=== PATIENT | female | born 1945 | race Caucasian/White ===

== ENCOUNTER 2017-12-21 16:48 | Inpatient (IN) | payer MEDICARE, SELFPAY ==
[2017-12-21 16:49] VITALS: BP 146/69; PULSE 69; RESP 16; TEMP 36; O2SAT 94; BMI 41.5
--- NOTE | 2017-12-21 17:34 | CT_ITS ---
STUDY: CT ABDOMEN AND PELVIS WITH CONTRAST REASON FOR EXAM: Female, 72 years old. Abdominal burning tightness. RADIATION DOSAGE (If Supplied By Facility): CTDIvol = ( 18.71 ) mGy, DLP = ( 1142.55 ) mGycm TECHNIQUE: Transaxial images were obtained from the dome of the diaphragm to the symphysis pubis without oral contrast. 100 ml of Isovue 300 contrast was administered. Sagittal and coronal images were reconstructed. Individualized dose optimization techniques were used for this CT. COMPARISON: None. FINDINGS: The liver, spleen, pancreas, adrenal glands, and kidneys are unremarkable. The aorta is normal in caliber, with mild atherosclerotic calcification. The gallbladder is distended with multiple stones. There is wall thickening and trace pericholecystic inflammatory stranding. No evidence of biliary duct dilation. Duodenal diverticulum is noted. There is no bowel obstruction or inflammatory change. Infraumbilical midline abdominal wall hernia contains a loop of small bowel. There is no free fluid, free air, or organized collection. Normal urinary bladder. Normal abdominal wall. Normal osseous structures. CT/Abdomen/Pelvis WITH Contrast IMPRESSION: 1. Cholelithiasis and suspected acute cholecystitis. 2. Midline abdominal wall hernia containing bowel. No obstruction. Electronically Signed: Andra Arnold MD at 19:50 EDT Tel , Service support ,
--- NOTE | 2017-12-21 17:35 | EKG12_ITS ---
Test Reason : Blood Pressure : / mmHG Vent. Rate : 070 BPM Atrial Rate : 070 BPM P-R Int : 140 ms QRS Dur : 084 ms QT Int : 400 ms P-R-T Axes : 062 050 023 degrees QTc Int : 432 ms Normal sinus rhythm Normal ECG Confirmed by JENNIFER HART, MIKAL ([id number]), web content editor NUVIA MARX ([id number] on 12/24/2017 2:29:56 PM Referred By: Audi Kilpatrick Confirmed By:MIKAL RODRIGUEZ MD
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
[2017-12-21 18:19] LABS: Absolute Lymphocyte Count 2.04 X10^3/ul (0.83-4.51); Absolute Neutrophil Count 10.3 X10^3/uL (2.0-7.7); Basophil# 0.03 X10^3/uL; Basophil% 0.2 % (0-1); Eosinophil# 0.07 X10^3/uL; Eosinophils% 0.5 % (0-5); Hematocrit 42.6 % (37-47); Hemoglobin 13.9 g/dl (12.0-15.0); Lymphocyte # 2.04 X10^3/ul (4.0); Lymphocyte % 14.4 % (19-41); Mean Corp Hgb Conc 32.6 g/gl (32-36); Mean Corpuscular Hgb 29.7 pg (27.0-32.0); Monocyte# 1.77 X10^3/uL; Monocyte% 12.5 % (0-10); Neutrophil # 10.25 X10^3/uL (2.7-7.7); Neutrophil % 72.1 % (47-70); POSITIVE DIFFERENTIAL YES; Platelet Count 301 K/mm3 (150-450); RBC Distribution Width SD 42.9 fl (35.1-43.9); Red Blood Count 4.68 M/mm3 (4.2-5.4); White Blood Count 14.2 K/mm3 (4.4-11.0)
[2017-12-21 18:20] LABS: Differential Indicated SCAN CRITERIA MET; POSITIVE COUNT NO; POSITIVE MORPHOLOGY NO
[2017-12-21 18:20] LABS: Mucous, Urine 0 SEEN /hpf (<or=2+); Red Blood Cells-Urine 0 SEEN /hpf (0-5)
[2017-12-21 18:21] LABS: Color, Urine Yellow (Yellow); Glucose, Dipstick Normal (Normal); Ketone-Dipstick Negative (Negative); Leukocyte Esterase-Dipstick 25 /ul (Negative); Nitrite-Dipstick Negative (Negative); Occult Blood-Urine Negative /ul (Negative); Protein-Dipstick Negative (Negative); Urine Bilirubin Dipstick Negative (Negative); Urine Clarity Clear (Clear); Urine Urobilinogen 1 mg/dl (Normal)
[2017-12-21] MEDS: 0.9% Normal Saline 1,000 ML 500 ML IV (18:22)
[2017-12-21] MEDS: Ondansetron 4 MG/2 ML Vial IV (18:22)
[2017-12-21] MEDS: Morphine 4 MG/ML Syringe IV (18:22)
[2017-12-21 18:33] LABS: Squamous Epithelial Cells - UA 5-10 SEEN /hpf (5-10); White Blood Cells 0-5 SEEN /hpf (0-5)
[2017-12-21 18:34] LABS: Bacteria 1+ /hpf (None Seen); Hyaline Cast 0-5 SEEN /lpf (0-5)
[2017-12-21 18:36] LABS: ALB/GLOB Ratio 0.8 RATIO (0.9-2.4); AST(SGOT) 19 U/L (15-37); Alanine Aminotransfer ALT/SGPT 27 U/L (13-56); Albumin, Serum 3.3 g/dL (3.2-5.0); Alkaline Phosphatase 113 U/L (45-117); Anion Gap 9 (5-15); BUN 12 mg/dL (7-18); Calcium,Total 8.9 mg/dL (8.5-10.1); Chloride 99 mmol/L (98-107); Creatinine, Serum 0.86 mg/dL (0.55-1.02); Differential Comment SCANNED; EST Glomerular Filtration Rate 69 mL/min (>60); Est Glom Filt Rate - Afr Amer 84 mL/min (>60); Estimated Creatinine Clearance 51.81 ml/min; Globulin 4.1 g/dL (2.2-4.2); Glucose 109 mg/dL (74-106); Lipase 78 U/L (73-393); Potassium 4.2 mmol/L (3.5-5.1); Protein, Total 7.4 g/dL (6.4-8.2); Sodium Level 137 mmol/L (136-145)
[2017-12-21 18:43] LABS: Lactic Acid 0.8 mmol/L (0.4-2.0)
[2017-12-21 19:42] VITALS: BP 137/74; PULSE 66; RESP 16; O2SAT 98
[2017-12-21 20:47] LABS: AST(SGOT) 23 U/L (15-37); Alanine Aminotransfer ALT/SGPT 26 U/L (13-56); Albumin, Serum 3.3 g/dL (3.2-5.0); Alkaline Phosphatase 118 U/L (45-117); Bilirubin, Direct 0.51 mg/dL (0.00-0.30); Globulin 4.1 g/dL (2.2-4.2); Protein, Total 7.4 g/dL (6.4-8.2)
[2017-12-21 21:38] VITALS: PULSE 62; RESP 12; O2SAT 95
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
[2017-12-21 23:30] LABS: International Normalized Ratio 1.1; Prothrombin Time (Protime)PT. 13.8 SECONDS (11.7-14.9)
[2017-12-21 23:54] VITALS: BMI 41.8
[2017-12-22] VITALS (12 sets, daily range): BP systolic 106–128; BP diastolic 53–87; PULSE 60–70; RESP 16–18; TEMP 36.5–37; O2SAT 93–97; BMI 41.8
[2017-12-22 05:29] LABS: Absolute Lymphocyte Count 2.09 X10^3/ul (0.83-4.51); Absolute Neutrophil Count 7.8 X10^3/uL (2.0-7.7); Basophil# 0.03 X10^3/uL; Basophil% 0.3 % (0-1); Eosinophil# 0.21 X10^3/uL; Eosinophils% 1.8 % (0-5); Hematocrit 41.8 % (37-47); Hemoglobin 13.8 g/dl (12.0-15.0); Lymphocyte # 2.09 X10^3/ul (4.0); Lymphocyte % 17.7 % (19-41); Mean Corpuscular Volume 90.9 fL (81-99); Mean Platelet Vol. 9.9 fl (6.2-12.0); Monocyte# 1.62 X10^3/uL; Monocyte% 13.7 % (0-10); Neutrophil # 7.83 X10^3/uL (2.7-7.7); Neutrophil % 66.3 % (47-70); Platelet Count 247 K/mm3 (150-450); White Blood Count 11.8 K/mm3 (4.4-11.0)
[2017-12-22 05:30] LABS: Differential Indicated SCAN CRITERIA MET; POSITIVE COUNT NO; POSITIVE DIFFERENTIAL YES; POSITIVE MORPHOLOGY NO
[2017-12-22 05:34] LABS: Partial Thromboplast Time 27.8 Seconds (24.1-36.2)
[2017-12-22] MEDS: Piperacil/Tazobactam 3.375 GM/50 ML ML IV ×2 (05:40→13:23)
[2017-12-22] MEDS: 0.9% NaCl Peripheral Flush Adult/Peds IV ×2 (05:41→09:51)
[2017-12-22] MEDS: 0.9% NaCl IVPB Med Flush (250 mL) 15 ML IV (05:46)
--- NOTE | 2017-12-22 05:55 | EKG12_ITS ---
Test Reason : AM EKG Blood Pressure : / mmHG Vent. Rate : 067 BPM Atrial Rate : 067 BPM P-R Int : 154 ms QRS Dur : 086 ms QT Int : 400 ms P-R-T Axes : 042 058 026 degrees QTc Int : 422 ms Normal sinus rhythm Normal ECG When compared with ECG of 21-DEC-2017 17:45, MANUAL COMPARISON REQUIRED, DATA IS UNCONFIRMED Confirmed by JANET HART, BISMARK ([id number]), social media editor NUVIA MARX ([id number]) on 12/24/2017 3:30:49 PM Referred By: Audi Kilpatrick Confirmed By:BISMARK GONZALES MD
[2017-12-22 06:06] LABS: Anion Gap 9 (5-15); BUN 10 mg/dL (7-18); BUN/Creat Ratio 12.9 RATIO (10-20); Calcium,Total 8.5 mg/dL (8.5-10.1); Chloride 102 mmol/L (98-107); Creatinine, Serum 0.77 mg/dL (0.55-1.02); EST Glomerular Filtration Rate 78 mL/min (>60); Est Glom Filt Rate - Afr Amer 95 mL/min (>60); Estimated Creatinine Clearance 44.56 ml/min; Glucose 95 mg/dL (74-106); Potassium 3.9 mmol/L (3.5-5.1); Sodium Level 137 mmol/L (136-145); Thyroid Stim Hormone (TSH) 1.46 uIU/mL (0.358-3.74)
[2017-12-22 07:50] LABS: AST(SGOT) 28 U/L (15-37); Alanine Aminotransfer ALT/SGPT 29 U/L (13-56); Albumin, Serum 2.8 g/dL (3.2-5.0); Alkaline Phosphatase 105 U/L (45-117); Bilirubin, Direct 0.33 mg/dL (0.00-0.30); Protein, Total 6.8 g/dL (6.4-8.2)
--- NOTE | 2017-12-22 08:47 | PCM.PN.SRG ---
Patient Problems: Active and Suspected Problems Cholelithiasis and acute cholecystitis with obstruction (Acute) Subjective: Patient is still having abdominal pain. - Physical Exam General: Alert, Oriented x3, Cooperative Lungs: Normal air movement Cardiovascular: Regular rate, Regular Rhythm Abdomen: Soft, Non-Distended, Obese, Tender, Hernia Vital Signs Temp Pulse Resp BP Pulse Ox 98.0 F 70 16 122/79 H 96 12/22/17 06:30 12/22/17 06:30 12/22/17 06:30 12/22/17 06:30 12/22/17 06:30 Oxygen Delivery Method Room Air Weight: 243 lb 9.773 oz Body Mass Index (BMI) 41.8 Intake and Output for Last 24 Hours 12/20/17 12/21/17 12/22/17 23:59 23:59 23:59 Intake Total 202 / 202 Output Total 300 / 300 Balance -98 / -98 Laboratory Tests Past 24 Hrs 12/22/17 12/22/17 12/22/17 05:12 05:12 05:12 WBC 11.8 H RBC 4.60 Hgb 13.8 Hct 41.8 MCV 90.9 MCH 30.0 MCHC 33.0 RDW 13.0 RDW Differential 43.0 Plt Count 247 MPV 9.9 Immature Gran % (Auto) 0.200 Neut % (Auto) 66.3 Lymph % (Auto) 17.7 L Jay % (Auto) 13.7 H Eos % (Auto) 1.8 Baso % (Auto) 0.3 Absolute Neuts (auto) 7.8 H Absolute Lymphs (auto) 2.09 Total Counted Not Reportable APTT 27.8 Sodium 137 Potassium 3.9 Chloride 102 Carbon Dioxide 26.0 Anion Gap 9 BUN 10 Creatinine 0.77 Estim Creat Clear Calc 44.56 Est GFR (MDRD) Af Amer 95 Est GFR (MDRD) Non-Af 78 BUN/Creatinine Ratio 12.9 Glucose 95 Calcium 8.5 Total Bilirubin Direct Bilirubin AST ALT Alkaline Phosphatase Total Protein Albumin Globulin TSH 1.46 12/22/17 05:12 WBC RBC Hgb Hct MCV MCH MCHC RDW RDW Differential Plt Count MPV Immature Gran % (Auto) Neut % (Auto) Lymph % (Auto) Jay % (Auto) Eos % (Auto) Baso % (Auto) Absolute Neuts (auto) Absolute Lymphs (auto) Total Counted APTT Sodium Potassium Chloride Carbon Dioxide Anion Gap BUN Creatinine Estim Creat Clear Calc Est GFR (MDRD) Af Amer Est GFR (MDRD) Non-Af BUN/Creatinine Ratio Glucose Calcium Total Bilirubin 2.20 H Direct Bilirubin 0.33 H AST 28 ALT 29 Alkaline Phosphatase 105 Total Protein 6.8 Albumin 2.8 L Globulin 4.0 TSH Medical Necessity - Tobacco Use Smoking Status: Never smoker Assessment/Plan All Active Problems Cholelithiasis and acute cholecystitis with obstruction (Acute) Syncope and collapse (Resolved) Chest pain (Resolved) 72-year-old female with obstructive jaundice and cholecystitis 1. The patient has elevated LFTs which have not improved since yesterday. The patient has acute cholecystitis on her CT scan. There is concern for choledocholithiasis with obstruction. Dr. Araya would like me to perform an ERCP to clear the obstruction before laparoscopic cholecystectomy tomorrow. I also plan to place a stent at the time of ERCP as the cholecystectomy will likely be very difficult based on the patient's history and comorbidities as well as ventral hernia. This will allow for drainage if there is any bile leak or difficulty with surgery. 2. I discussed ERCP with the patient. I discussed the risks including but not limited to bleeding, infection, perforation of the bile duct or bowels, pancreatitis. The patient understands the risks and is willing to proceed with surgery. I also explained the possibility that the patient may remain intubated due to her emphysema and CHF. Alvaro Rose MD Pager: [facility] [address] [place] [address], [address] [place] [address] Office:
--- NOTE | 2017-12-22 08:51 | PN.SURG_ITS ---
Patient Problems: Active and Suspected Problems Cholelithiasis and acute cholecystitis with obstruction (Acute) Subjective: Patient is still having abdominal pain. - Physical Exam General: Alert, Oriented x3, Cooperative Lungs: Normal air movement Cardiovascular: Regular rate, Regular Rhythm Abdomen: Soft, Non-Distended, Obese, Tender, Hernia Vital Signs Temp Pulse Resp BP Pulse Ox 98.0 F 70 16 122/79 H 96 12/22/17 06:30 12/22/17 06:30 12/22/17 06:30 12/22/17 06:30 12/22/17 06:30 Oxygen Delivery Method Room Air Weight: 243 lb 9.773 oz Body Mass Index (BMI) 41.8 Intake and Output for Last 24 Hours 12/20/17 12/21/17 12/22/17 23:59 23:59 23:59 Intake Total 202 / 202 Output Total 300 / 300 Balance -98 / -98 Laboratory Tests Past 24 Hrs 12/22/17 12/22/17 12/22/17 05:12 05:12 05:12 WBC 11.8 H RBC 4.60 Hgb 13.8 Hct 41.8 MCV 90.9 MCH 30.0 MCHC 33.0 RDW 13.0 RDW Differential 43.0 Plt Count 247 MPV 9.9 Immature Gran % (Auto) 0.200 Neut % (Auto) 66.3 Lymph % (Auto) 17.7 L [place] % (Auto) 13.7 H Eos % (Auto) 1.8 Baso % (Auto) 0.3 Absolute Neuts (auto) 7.8 H Absolute Lymphs (auto) 2.09 Total Counted Not Reportable APTT 27.8 Sodium 137 Potassium 3.9 Chloride 102 Carbon Dioxide 26.0 Anion Gap 9 BUN 10 Creatinine 0.77 Estim Creat Clear Calc 44.56 Est GFR (MDRD) Af Amer 95 Est GFR (MDRD) Non-Af 78 BUN/Creatinine Ratio 12.9 Glucose 95 Calcium 8.5 Total Bilirubin Direct Bilirubin AST ALT Alkaline Phosphatase Total Protein Albumin Globulin TSH 1.46 12/22/17 05:12 WBC RBC Hgb Hct MCV MCH MCHC RDW RDW Differential Plt Count MPV Immature Gran % (Auto) Neut % (Auto) Lymph % (Auto) [place] % (Auto) Eos % (Auto) Baso % (Auto) Absolute Neuts (auto) Absolute Lymphs (auto) Total Counted APTT Sodium Potassium Chloride Carbon Dioxide Anion Gap BUN Creatinine Estim Creat Clear Calc Est GFR (MDRD) Af Amer Est GFR (MDRD) Non-Af BUN/Creatinine Ratio Glucose Calcium Total Bilirubin 2.20 H Direct Bilirubin 0.33 H AST 28 ALT 29 Alkaline Phosphatase 105 Total Protein 6.8 Albumin 2.8 L Globulin 4.0 TSH Medical Necessity - Tobacco Use Smoking Status: Never smoker Assessment/Plan All Active Problems Cholelithiasis and acute cholecystitis with obstruction (Acute) Syncope and collapse (Resolved) Chest pain (Resolved) 72-year-old female with obstructive jaundice and cholecystitis 1. The patient has elevated LFTs which have not improved since yesterday. The patient has acute cholecystitis on her CT scan. There is concern for choledocholithiasis with obstruction. Dr. Araya would like me to perform an ERCP to clear the obstruction before laparoscopic cholecystectomy tomorrow. I also plan to place a stent at the time of ERCP as the cholecystectomy will likely be very difficult based on the patient's history and comorbidities as well as ventral hernia. This will allow for drainage if there is any bile leak or difficulty with surgery. 2. I discussed ERCP with the patient. I discussed the risks including but not limited to bleeding, infection, perforation of the bile duct or bowels, pancreatitis. The patient understands the risks and is willing to proceed with surgery. I also explained the possibility that the patient may remain intubated due to her emphysema and CHF. Alvaro Rose MD Pager: [facility] [address] [place] [address], [address] [place] [address] Office:
--- NOTE | 2017-12-22 09:49 | NURSING ---
report called to Mariana GODDARD in [facility].
--- NOTE | 2017-12-22 11:41 | PCM.OPRPT ---
Problem List (1) Cholelithiasis and acute cholecystitis with obstruction Status: Acute Report of Operation Date of Procedure: 12/22/17 Pre-Operative Diagnosis: Elevated liver enzymes and cholecystitis Post-Operative Diagnosis: Periampullary diverticulum of the duodenum Surgery/Procedure Performed:: EGD with attempted ERCP Description of Surgical Findings:: The patient has 2 large periampullary diverticula. The ampulla was distorted and pulled into 1 of the diverticula and I was unable to cannulate the ampulla due to the angle. There was good bile flow at the beginning of the case and there was a lot of bile in the duodenum and stomach. I did see bile flowing from the ampulla. Description of Procedure: After describing the risks of the procedure as well as the procedure in detail informed consent was obtained. Patient was brought to the operating room and general anesthesia was induced. The patient was then placed in a semi-prone position. Next, the side-viewing endoscope was placed into the mouth and down into the stomach and advanced into the duodenum. The ampulla was located. The ampulla was located inside the diverticulum. The angle was such that it was facing away from the camera. I was unable to pull it back in order to have a straight view of the ampulla or head on access for cannulation. There was good bile flowing from the ampulla ruling out a total obstruction. The ampulla mucosa appeared normal but it was fully included in the diverticulum. At this point I decided to abort the procedure as I was unable to cannulate the duct due to the angulation of the ampulla. The side-viewing scope was then withdrawn back into the stomach and the stomach was suctioned. Next, the scope was removed. The patient was taken to PACU in stable condition. The patient tolerated the procedure well. - Admit VTE Documentation VTE Mechan Device Prophylaxis: SCD's
--- NOTE | 2017-12-22 15:44 | PCM.PN.SRG ---
Patient Problems: Active and Suspected Problems Cholelithiasis and acute cholecystitis with obstruction (Acute) Subjective: Patient had an unsuccessful ERCP. Total bili remains elevated as does alkaline phosphatase. Objective: Abdomen is soft tender in the right upper quadrant - Physical Exam Vital Signs Temp Pulse Resp BP Pulse Ox 98.6 F 63 18 110/69 95 12/22/17 15:33 12/22/17 15:33 12/22/17 15:33 12/22/17 15:33 12/22/17 15:33 Oxygen Flow Rate (L/min) 2 Oxygen Delivery Method Room Air Weight: 243 lb 9.773 oz Body Mass Index (BMI) 41.8 Intake and Output for Last 24 Hours 12/20/17 12/21/17 12/22/17 23:59 23:59 23:59 Intake Total 902 / 902 Output Total 300 / 300 Balance 602 / 602 Laboratory Tests Past 24 Hrs 12/22/17 12/22/17 12/22/17 05:12 05:12 05:12 WBC 11.8 H RBC 4.60 Hgb 13.8 Hct 41.8 MCV 90.9 MCH 30.0 MCHC 33.0 RDW 13.0 RDW Differential 43.0 Plt Count 247 MPV 9.9 Immature Gran % (Auto) 0.200 Neut % (Auto) 66.3 Lymph % (Auto) 17.7 L Sharkey % (Auto) 13.7 H Eos % (Auto) 1.8 Baso % (Auto) 0.3 Absolute Neuts (auto) 7.8 H Absolute Lymphs (auto) 2.09 Total Counted Not Reportable APTT 27.8 Sodium 137 Potassium 3.9 Chloride 102 Carbon Dioxide 26.0 Anion Gap 9 BUN 10 Creatinine 0.77 Estim Creat Clear Calc 44.56 Est GFR (MDRD) Af Amer 95 Est GFR (MDRD) Non-Af 78 BUN/Creatinine Ratio 12.9 Glucose 95 Calcium 8.5 Total Bilirubin Direct Bilirubin AST ALT Alkaline Phosphatase Total Protein Albumin Globulin TSH 1.46 12/22/17 05:12 WBC RBC Hgb Hct MCV MCH MCHC RDW RDW Differential Plt Count MPV Immature Gran % (Auto) Neut % (Auto) Lymph % (Auto) Sharkey % (Auto) Eos % (Auto) Baso % (Auto) Absolute Neuts (auto) Absolute Lymphs (auto) Total Counted APTT Sodium Potassium Chloride Carbon Dioxide Anion Gap BUN Creatinine Estim Creat Clear Calc Est GFR (MDRD) Af Amer Est GFR (MDRD) Non-Af BUN/Creatinine Ratio Glucose Calcium Total Bilirubin 2.20 H Direct Bilirubin 0.33 H AST 28 ALT 29 Alkaline Phosphatase 105 Total Protein 6.8 Albumin 2.8 L Globulin 4.0 TSH Medical Necessity - Tobacco Use Smoking Status: Never smoker Assessment/Plan All Active Problems Cholelithiasis and acute cholecystitis with obstruction (Acute) Syncope and collapse (Resolved) Chest pain (Resolved) Patient is going to have to probably have a laparoscopic or an open cholecystectomy with the probability and possibility of needing to have a common bile duct exploration. Given the fact that she has a large chevron incision it is unlikely that this is going to be done laparoscopically. Also given the fact that I have never done a common duct exploration I think it is best that this patient be transferred to a tertiary referral center.
--- NOTE | 2017-12-22 15:54 | CHAPLAIN ---
Type of Pastoral Visit _x__ Initial Visit ___ Follow-up Visit ___ On-call Visit ___ General Patient Visit ___ Spiritual Assessment ___ Family Conference ___ Bereavement ___ Rapid Response ___ Code Blue ___ Other (describe below) Pastoral Care Referral From _x__ Patient ___ Family ___ Nurse ___ Physician ___ Brand Analyst ___ Peanut Grader ___ Other (describe below) Sacrament/Intervention _x__ Active listening ___ Anointing ___ Buddhist ___ Bereavement ___ Communion _x__ Kae exploration ___ _x__ Life review _x__ Prayer ___ Reconciliation ___ Sacrament of Sick _x__ Supportive presence ___ Wedding ___ Other (describe below) Pastoral Comments
[2017-12-22] MEDS: BENZOCAINE/MENTHOL 1 LOZENGE MUCOUS MEM (16:50)
[2017-12-22] MEDS: Morphine 2 MG/ML Syringe IV (17:01)
--- NOTE | 2017-12-22 18:00 | NURSING ---
talked w/ tran general transfer line aware no bed at this time and hopeful will have a bed after supper.
--- NOTE | 2017-12-22 18:03 | DCINST_ITS ---
- Discharge Diagnoses Current Active Problems: Current Active and Chronic Problems Cholelithiasis and acute cholecystitis with obstruction (Acute) Emphysema of lung (Chronic) You will use the following diet at home:: Clear liquid Allergies/Adverse Reactions: Allergies No Known Allergies Allergy (Verified 09/06/16 10:02) Medications to take at Discharge Sertraline HCl [Zoloft] 50 mg PO DAILY 08/20/13 Levothyroxine [Synthroid] 100 mcg PO DAILY@0600 #30 tablet 07/27/15 0.9% Saline Lock 5 - 30 ml IV UD PRN syringe 12/22/17 Ondansetron [Zofran] 4 mg IV Q6H PRN PRN vial 12/22/17 Piperacil/Tazobactam [Zosyn] 3.375 gm IV Q8 ml 12/22/17 Primary Care Physician: Samm Morrow MD [Primary Care Provider] - Test Results: Test results from this visit will be discussed in further detail at your follow- up appointment, if applicable. Proposed Discharge Date: 12/22/17
--- NOTE | 2017-12-22 18:03 | PCM.DC.SUM ---
Discharge Date and Diagnosis - Problem List Patient Problems: Active and Suspected Problems Cholelithiasis and acute cholecystitis with obstruction (Acute) Date of Admission: 12/20/17 Date of Discharge: 12/22/17 - Primary Discharge Diagnosis Active and Suspected Problems Cholelithiasis and acute cholecystitis with obstruction (Acute) - Secondary Discharge Diagnosis Chronic Problems Emphysema of lung (Chronic) Pulmonary hypertension (Chronic) Simple phobia (Chronic) Obesity (Chronic) Hypothyroidism (Chronic) Hospital Course and Treatment Operations: None Procedures: - - ERCP Summary of Care Provided: The patient is a 72 year old F admitted to the hospital on account of right upper quadrant pain. CT showed gallstones and cholecystitis. LFTs were abnormal with elevated bilirubin and ALP raising the suspicion for choledocholithiasis. based on the foregoing patient had and ERCP attempted, however due to an abnormal anatomy with what seemed like the ampulla opening into a duodenal diverticulum, cannulation was technically difficult and essentially impossible and so had to be aborted. patient has also had extensive bowel surgery for ventral hernias and per general surgery would require open cholecystectomy and intraoperative cholangiogram and may be technically challenging. Based on this assessment it has been recommended that patient be referred to a tertiary center for this surgery which she needs. Other than the above patient is stable. There is no fever and WBC is actually on the downward trend with IV antibiotics. There is no sepsis. Will continue with NPO for now. A bed at [facility] is being awaited at this time. [] Home Medications: Medications to take at Discharge Sertraline HCl [Zoloft] 50 mg PO DAILY 08/20/13 Levothyroxine [Synthroid] 100 mcg PO DAILY@0600 #30 tablet 07/27/15 0.9% Saline Lock 5 - 30 ml IV UD PRN syringe 12/22/17 Ondansetron [Zofran] 4 mg IV Q6H PRN PRN vial 12/22/17 Piperacil/Tazobactam [Zosyn] 3.375 gm IV Q8 ml 12/22/17 Primary Care Physician: Samm Morrow MD [Primary Care Provider] - Disposition: [facility] Minutes spent on discharge:: 51 - spent in face to face evaluation and coordinating transfer to outside hospital Patient Condition:: Stable Medical Necessity - Tobacco Use Smoking Status: Never smoker Meaningful Use Info Meaningful Use Diagnoses (Choose all that apply): None applicable Code Visit Inpatient E&M: 67503 Disch Hosp
--- NOTE | 2017-12-22 19:55 | NURSING ---
[id number] REPORT CALLED TO GENEVIEVE GODDARD AT [facility]
--- NOTE | 2017-12-24 16:10 | CASEMGMT ---
RUPESH ALMANZA Discharge Follow-up Phone Call: BRUNOE: 9 Strata: 3 Call Date: 12/24/17 Discharge Date: 12/23/17 Time of Call:1610 Duration: 1 Admitting Diagnosis: Acute cholecystitis RUPESH ALMANZA attempted follow-up phone call after recent hospitalization. Number not working.
== END 2017-12-22 19:43 | disposition short-term general hospital (02) | DRG 445 ==
LOC: ED 17:29 → MS3 23:10
PROVIDERS: Anesthesiology; Physician Assistant; Surgery; Admitting Provider Hospitalist; Emergency Provider Emergency Medicine; Family Provider Family Medicine; PCP Family Medicine; Visit Provider Internal Medicine
PROC: (CPT 43260; principal; 2017-12-22 10:00)
DX: K80.01 Calculus of gallbladder with acute cholecystitis with obstruction (principal); Z68.41 Body mass index [BMI] 40.0-44.9, adult; K57.10 Diverticulosis of small intestine without perforation or abscess without bleeding; E03.9 Hypothyroidism, unspecified; J43.9 Emphysema, unspecified; E66.9 Obesity, unspecified; I27.20 Pulmonary hypertension, unspecified; K43.9 Ventral hernia without obstruction or gangrene; I50.9 Heart failure, unspecified
CPT/HCPCS: 36415; 74177; 80048; 80053; 80076; 81001; 83605; 83690; 84443; 84484; 85025; 85610; 85730; 93005; 99285; J7030; J7050; Q9967; A4216; J2405

== ENCOUNTER → 2018-08-10 15:08 | Outpatient (CLI) | payer MEDICARE, SELFPAY ==
[2017-12-22 09:34] VITALS: BMI 41.8
[2018-08-10 18:18] LABS: Anion Gap 8 (5-15); BUN 21 mg/dL (7-18); BUN/Creat Ratio 23.5 RATIO (10-20); Calcium,Total 9.1 mg/dL (8.5-10.1); Chloride 105 mmol/L (98-107); Creatinine, Serum 0.89 mg/dL (0.55-1.02); EST Glomerular Filtration Rate 66 mL/min (>60); Est Glom Filt Rate - Afr Amer 80 mL/min (>60); Glucose 101 mg/dL (74-106); Potassium 4.4 mmol/L (3.5-5.1); Sodium Level 141 mmol/L (136-145); Thyroid Stim Hormone (TSH) 1.32 uIU/mL (0.358-3.74)
== END ==
PROVIDERS: Family Provider Family Medicine; PCP Family Medicine; Referring Provider Family Medicine; Visit Provider Family Medicine
DX: I10 Essential (primary) hypertension (principal); E03.9 Hypothyroidism, unspecified
CPT/HCPCS: 36415; 80048; 84443

== ENCOUNTER → 2020-08-14 14:19 | Outpatient (CLI) | payer MEDICARE, SELFPAY ==
[2017-12-22 09:34] VITALS: BMI 41.8
[2020-08-14 18:38] LABS: ALB/GLOB Ratio 0.9 RATIO (0.9-2.4); AST(SGOT) 16 U/L (15-37); Alanine Aminotransfer ALT/SGPT 22 U/L (13-56); Albumin, Serum 3.5 g/dL (3.2-5.0); Alkaline Phosphatase 110 U/L (45-117); Anion Gap 6 (5-15); BUN 14 mg/dL (7-18); BUN/Creat Ratio 15.2 RATIO (10-20); Calcium,Total 9.2 mg/dL (8.5-10.1); Chloride 104 mmol/L (98-107); Cholesterol 202 mg/dL (200); Creatinine, Serum 0.92 mg/dL (0.55-1.02); EST Glomerular Filtration Rate 64 mL/min (>60); Est Glom Filt Rate - Afr Amer 77 mL/min (>60); Globulin 3.8 g/dL (2.2-4.2); Glucose 106 mg/dL (74-106); High Density Lipoprotein 47 mg/dL; Potassium 3.9 mmol/L (3.5-5.1); Protein, Total 7.3 g/dL (6.4-8.2); Sodium Level 137 mmol/L (136-145); T4 Free Direct 1.55 ng/dL (0.76-1.46); Triglycerides 97 mg/dL; Very Low Density Lipoprotein 19 mg/dL (5-40)
== END ==
PROVIDERS: PCP Family Medicine; Referring Provider Family Medicine; Visit Provider Family Medicine
DX: E03.9 Hypothyroidism, unspecified (principal); I10 Essential (primary) hypertension
CPT/HCPCS: 36415; 80053; 80061; 84439; 84443